=== PATIENT | female | born 1990 | race Two or more races ===

== ENCOUNTER 2020-01-30 12:30 | Inpatient (IN) | payer OTHER ==
[~2020-01-30] VITALS: Ht 154.9 cm; Wt 3.6 kg
[~2020-01-30 12:30] MED LIST: PRENATAL CAPLE1 EACH PO
== END 2020-02-07 15:05 | disposition home or self-care (01) | DRG 819 ==
LOC: OB/GYN 02-04 08:00 → O/R 02-04 09:19 → OB/GYN 02-04 12:30
PROVIDERS: ADMIT Obstetrics & Gynecology; ATTEND Obstetrics & Gynecology
PROC: 0UT70ZZ Resection of Bilateral Fallopian Tubes, Open Approach (ICD-10-PCS; 2020-02-04)
PROC: 4A0 Measurement and Monitoring, Physiological Systems, Measurement (ICD-10-PCS; principal; 2020-02-04 08:00)
DX: O34.211 Maternal care for low transverse scar from previous cesarean delivery (principal); O82 Encounter for cesarean delivery without indication; Z3A.39 39 weeks gestation of pregnancy; Z37.0 Single live birth; Z30.2 Encounter for sterilization